=== PATIENT | male | born 1945 | race African-American/Black ===

== ENCOUNTER 2017-10-02 16:56 | Emergency (ER) | payer MEDICARE, OTHER ==
[~2017-10-02] VITALS: Ht 170.2 cm; Wt 73.0 kg
[~2017-10-02 16:56] MED LIST: BACT800T5 PO
[2017-10-02 17:05] VITALS: BP 179/86; PULSE 66; RESP 16; TEMP 99; O2SAT 99
[2017-10-02] MEDS ORDERED: AMLO10TA2 PO (17:06)
[2017-10-02] MEDS ORDERED: METO50TA PO (17:06)
--- NOTE | 2017-10-02 17:08 | PD ---
HPI Chief Complaint: generalized weakness Time Seen by Provider: 17:02 Travel History International Travel<30 days: No Contact w/Intl Traveler<30days: No Traveled to known affect area: No History of Present Illness HPI 72-year-old male brought in by ambulance for evaluation of feeling sick and generalized weakness. When asked to describe his symptoms further come the patient states he is unable to do so. Symptoms started today. Denies cough. No chest pain or dyspnea. No abdominal pain, nausea, vomiting, or diarrhea. No fevers or chills. PFSH Past Medical History Cardiovascular Problems: Yes (HTN) Diabetes: Yes (DIET CONTROLLED) Hypertension: Yes Past Surgical History Other Surgery: Yes (LEFT HERNIA REPAIR) Social History Alcohol Use: No Tobacco Use: No Substance Use: No Allergies-Medications (Allergen,Severity, Reaction): Coded Allergies: No Known Allergies (Verified Adverse Reaction, Unknown, 10/02/17) Reported Meds & Prescriptions Reported Meds & Active Scripts Active Reported Metoprolol Tartrate 50 Mg Tab 50 Mg PO DAILY Amlodipine (Amlodipine Besylate) 10 Mg Tab 10 Mg PO DAILY Review of Systems Except as stated in HPI: all other systems reviewed are Neg Physical Exam Narrative GENERAL: Well-developed, well-nourished, comfortable, no apparent distress. SKIN: Focused skin assessment warm/dry. Keloid scars on anterior chest. No rash. HEAD: Atraumatic. Normocephalic. EYES: Pupils equal and round. No scleral icterus. No injection or drainage. ENT: Mucous membranes pink and moist. NECK: Trachea midline. No JVD. No nuchal rigidity. CARDIOVASCULAR: Regular rate and rhythm. No murmur appreciated. RESPIRATORY: No accessory muscle use. Clear to auscultation. Breath sounds equal bilaterally. GASTROINTESTINAL: Abdomen soft, non-tender, nondistended. MUSCULOSKELETAL: No obvious deformities. No clubbing. No cyanosis. No edema. NEUROLOGICAL: Awake and alert. No obvious cranial nerve deficits. Motor grossly within normal limits. Normal speech. PSYCHIATRIC: Appropriate mood and affect; insight and judgment normal. Data Data Last Documented VS Vital Signs Date Time Temp Pulse Resp B/P (MAP) Pulse Ox O2 Delivery O2 Flow Rate FiO2 10/02/17 17:10 67 16 98 Room Air 10/02/17 17:05 99.0 179/86 (117) Orders Orders Complete Blood Count With Diff (10/02/17 17:05) Comprehensive Metabolic Panel (10/02/17 17:05) Iv Access Insert/Monitor (10/02/17 17:05) Ecg Monitoring (10/02/17 17:05) Oximetry (10/02/17 17:05) Sodium Chloride 0.9% Flush (Ns Flush) (10/02/17 17:15) Chest, Single Ap (10/02/17 ) Influenzae A/B Antigen (10/02/17 17:05) Alcohol (Ethanol) (10/02/17 17:05) Labs Laboratory Tests Test 10/02/17 17:10 White Blood Count 5.8 TH/MM3 Red Blood Count 4.18 MIL/MM3 Hemoglobin 13.6 GM/DL Hematocrit 38.9 % Mean Corpuscular Volume 92.9 FL Mean Corpuscular Hemoglobin 32.5 PG Mean Corpuscular Hemoglobin Concent 34.9 % Red Cell Distribution Width 14.6 % Platelet Count 138 TH/MM3 Mean Platelet Volume 8.4 FL Neutrophils (%) (Auto) 48.8 % Lymphocytes (%) (Auto) 26.9 % Monocytes (%) (Auto) 19.7 % Eosinophils (%) (Auto) 3.9 % Basophils (%) (Auto) 0.7 % Neutrophils # (Auto) 2.8 TH/MM3 Lymphocytes # (Auto) 1.6 TH/MM3 Monocytes # (Auto) 1.1 TH/MM3 Eosinophils # (Auto) 0.2 TH/MM3 Basophils # (Auto) 0.0 TH/MM3 CBC Comment DIFF FINAL Differential Comment Blood Urea Nitrogen 12 MG/DL Creatinine 1.10 MG/DL Random Glucose 90 MG/DL Total Protein 7.8 GM/DL Albumin 3.8 GM/DL Calcium Level 8.4 MG/DL Alkaline Phosphatase 84 U/L Aspartate Amino Transf (AST/SGOT) 18 U/L Alanine Aminotransferase (ALT/SGPT) 17 U/L Total Bilirubin 0.3 MG/DL Sodium Level 137 MEQ/L Potassium Level 3.7 MEQ/L Chloride Level 101 MEQ/L Carbon Dioxide Level 30.0 MEQ/L Anion Gap 6 MEQ/L Estimat Glomerular Filtration Rate 80 ML/MIN Ethyl Alcohol Level LESS THAN 3 MG/DL MDM Medical Decision Making Medical Screen Exam Complete: Yes Emergency Medical Condition: Yes Differential Diagnosis Metabolic abnormality, anemia, influenza, viral illness, generalized malaise Narrative Course Initial vital signs show heart rate 66, blood pressure 179/86, pulse ox 99% on room air, oral temp of 99F. CBC: WBC 5.8, hemoglobin 13.6, hematocrit 38.9, platelets 138. CMP is unremarkable. Alcohol level is negative. Influenza is negative. Chest x-ray shows no acute cardiopulmonary abnormality. Patient was made aware of all findings. He is sleeping comfortably. He is stable for discharge home with further workup as an outpatient. He states he has a primary care physician, however has had a difficult time making an appointment with him. I will given the name of the [facility] to follow up with this week. He was informed on when to return to the emergency department. He verbalizes understanding and agreement with plan. Diagnosis Primary Impression: Generalized weakness Referrals: [facility] 3 days Primary Care Physician 3 days Additional Instructions: Follow-up with a primary care physician this week. Return to the emergency department for worsening symptoms or any other concerns. Disposition: 01 DISCHARGE HOME Condition: Stable Stevo Winchester MD Oct 02, 2017 17:08
[2017-10-02 17:09] VITALS: RESP 16; O2SAT 98
[2017-10-02] MEDS ORDERED: SODIUM CHLORIDE 0.9% FLUSH 10 ML FLUSH IV FLUSH PRN (17:15)
--- NOTE | 2017-10-02 17:45 | RADRPT ---
EXAM DATE/TIME: 10/02/2017 17:11 [place] COMPARISON: No previous studies available for comparison. INDICATIONS : Chest pain, cough for 2 days. MEDICAL HISTORY : None. SURGICAL HISTORY : None. ENCOUNTER: Initial ACUITY: 2 days PAIN SCORE: 4/10 LOCATION: Bilateral lower chest FINDINGS: Portable AP view of the chest demonstrates a normal-sized cardiac silhouette. No effusion, consolidat ion, or pneumothorax is visualized. The bones and soft tissues demonstrate no acute abnormality. CONCLUSION: No acute cardiopulmonary abnormality is identified. Mateus River MD on October 02, 2017 at 17:43 Board Certified Radiologist. This report was verified electronically.
[2017-10-02 17:48] LABS: AUTOMATED NEUTROPHIL # 2.8 TH/MM3 (1.8-7.7); BASOPHIL % 0.7 % (0.0-2.0); EOSINOPHIL # 0.2 TH/MM3 (0-0.4); EOSINOPHIL % 3.9 % (0.0-4.0); HEMATOCRIT 38.9 % (39.0-51.0); HEMO FLAGS DIFF FINAL; LYMPH % 26.9 % (9.0-44.0); LYMPHOCYTE # 1.6 TH/MM3 (1.0-4.8); MEAN CELL VOLUME 92.9 FL (80.0-100.0); MEAN CORPUSCULAR HEMOGLOBIN 32.5 PG (27.0-34.0); MEAN CORPUSCULAR HGB CONC 34.9 % (32.0-36.0); MONO % 19.7 % (0.0-8.0); NEUT % 48.8 % (16.0-70.0); PLATELET COUNT 138 TH/MM3 (150-450); RED BLOOD COUNT 4.18 MIL/MM3 (4.50-5.90); RED CELL DISTRIBUTION WIDTH 14.6 % (11.6-17.2); WHITE BLOOD COUNT 5.8 TH/MM3 (4.0-11.0)
[2017-10-02 18:03] LABS: ALKALINE PHOSPHATASE 84 U/L (45-117); TOTAL BILIRUBIN ADULT 0.3 MG/DL (0.2-1.0)
[2017-10-02 18:12] LABS: ALT (GPT) 17 U/L (12-78); ANION GAP 6 MEQ/L (5-15); AST (GOT) 18 U/L (15-37); BLOOD UREA NITROGEN 12 MG/DL (7-18); CHLORIDE 101 MEQ/L (98-107); GLOMERULAR FILTRATION RATE 80 ML/MIN (>89); POTASSIUM 3.7 MEQ/L (3.5-5.1); SODIUM (NA) 137 MEQ/L (136-145)
[2017-10-02 18:13] LABS: ALCOHOL LESS THAN 3 MG/DL (0-5)
[2017-10-02 18:30] VITALS: BP 124/77; TEMP 97.8
== END 2017-10-02 18:30 | disposition home or self-care (01) ==
LOC: NEPD 16:56
DX: R53.1 Weakness (principal); I10 Essential (primary) hypertension; Z79.899 Other long term (current) drug therapy
CPT/HCPCS: 71010; 80053; 80307; 85025; 87804; 99284